=== PATIENT | male | born 1950 | race Caucasian/White ===

== ENCOUNTER 2022-09-15 17:01 | Emergency (ER) | payer OTHER ==
[~2022-09-15] VITALS: Ht 182.9 cm; Wt 81.6 kg
[2022-09-15 17:03] VITALS: BP_SYST 124
--- NOTE | 2022-09-15 17:10 | NUR ---
# 20 gauge angiocath placed to left antecubital. Use of asceptic technique. Opsite placed over site. Blood return noted. Blood for lab drawn from site. Flushed with 10 cc of normal saline. No evidence of infiltration noted. Patient tolerated well.
[2022-09-15] MEDS ORDERED: ONDANSETRON HCL 4 MG/2 ML VIAL IVP ONE (17:15)
--- NOTE | 2022-09-15 17:35 | NUR ---
Correctional Lieutenant bedside collecting blood specimen.
[2022-09-15] MEDS ORDERED: NS 250 ML IV ONE ×2 (17:45→19:00)
[2022-09-15 18:02] LABS: BASOPHILS % (AUTO) 0.5 % (0.0-2.0); EOSINOPHILS # (AUTO) 0.1 K/uL (0.0-0.4); EOSINOPHILS % (AUTO) 0.9 % (0.0-4.0); HEMATOCRIT 34.4 % (36-54); MEAN CORPUSCULAR HEMOGLOBIN 30 pg (27-31); MEAN CORPUSCULAR HGB CONC 32 % (32-36); MEAN CORPUSCULAR VOLUME 93 fL (79.0-98.0); MONOCYTES # (AUTO) 0.7 K/uL (0.0-1.0); MONOCYTES % (AUTO) 9.2 % (1.7-9.3); NEUTROPHILS # (AUTO) 4.8 K/uL (1.8-7.7); NEUTROPHILS % (AUTO) 63.4 % (40.0-70.0); PLATELET COUNT (AUTO) 194 K/uL (130-430); RED BLOOD CELL COUNT(AUTO) 3.71 MIL/uL (4.2-6.2); RED CELL DISTRIBUTION WIDTH 16.7 % (9.0-15.0); WHITE BLOOD COUNT (AUTO) 7.5 K/uL (4.8-10.8)
[2022-09-15 18:09] LABS: ANION GAP 13 (5-15); CALCIUM 9.5 mg/dL (8.4-11.0); CHLORIDE 95 mmol/L (98-107); GLUCOSE 215 mg/dL (70-99); UREA NITROGEN, BLOOD 44 mg/dL (8-21)
[2022-09-15 18:11] LABS: INR 1.2 (0.80-1.20); PROTHROMBIN TIME 12.5 SECS (9.5-12.5)
[2022-09-15] MEDS ORDERED: INSU100V7 SUBCUT (18:27)
[2022-09-15] MEDS ORDERED: ERGO1TAB30 PO (18:27)
[2022-09-15] MEDS ORDERED: APIX5TAB PO (18:27)
[2022-09-15] MEDS ORDERED: FOLI-43 PO (18:27)
[2022-09-15] MEDS ORDERED: FLUT16SP16 NS (18:27)
[2022-09-15] MEDS ORDERED: DORZ10DR10 EACH EYE (18:27)
[2022-09-15] MEDS ORDERED: MIDO5TAB4 PO (18:27)
[2022-09-15] MEDS ORDERED: REN800 PO (18:27)
[2022-09-15] MEDS ORDERED: GABA-529 PO (18:27)
[2022-09-15] MEDS ORDERED: PATI8.4P PO (18:27)
[2022-09-15] MEDS ORDERED: FLUO5DRO2 EACH EYE (18:27)
[2022-09-15] MEDS ORDERED: SEN30 PO (18:27)
[2022-09-15] MEDS ORDERED: AMIO200T61 PO (18:27)
[2022-09-15] MEDS ORDERED: METO-290 PO (18:27)
[2022-09-15] MEDS ORDERED: LIP40 PO (18:27)
[2022-09-15] MEDS ORDERED: POLY17PO4 PO (18:27)
[2022-09-15] MEDS ORDERED: ONDA4FIL5 PO (18:27)
[2022-09-15] MEDS ORDERED: NPH,100I SQ (18:27)
[2022-09-15] MEDS ORDERED: SENN8.6T19 PO (18:27)
[2022-09-15] MEDS ORDERED: ACET1TAB93 PO (18:27)
[2022-09-15 18:28] LABS: ALANINE AMINOTRANSFERASE 26 U/L (12-78); ALBUMIN 3.4 g/dL (3.4-4.8); ASPARTATE AMINOTRANSFERASE 24 U/L (10-37); PHOSPHORUS 3.3 mg/dL (2.7-4.5); TOTAL BILIRUBIN 0.5 mg/dL (0.0-1.0)
--- NOTE | 2022-09-15 18:28 | NUR ---
Medication reconciliation completed with information provided by [facility]. Any prior medication reconciliation on file was reviewed and corrected.
--- NOTE | 2022-09-15 19:19 | NUR ---
Report given to Tylor WASHINGTON
[2022-09-16 00:54] VITALS: BP_SYST 187
--- NOTE | 2022-09-16 00:56 | NUR ---
Patient to be transferred to [facility]. Is being transferred due to higher level of care. Receiving facility has accepting physician and available space. ER physician has signed transfer form. Patient or responsible constitution party has agreed to transfer and signed form. Patient belongings inventoried and will be sent with patient. Copy of nursing notes, lab reports, EKG, Physicians Orders and X-rays to be sent with patient. Report called to PADMINI BAUMAN at receiving facility. Receiving physician is DR. CARPIO. [facility] ambulance service has been called for transfer. PT LEFT VIA BERYL NOVOA IN STABLE CONDITION.
== END 2022-09-16 00:54 | disposition short-term general hospital (02) ==
LOC: SED 17:01
DX: J96.01 Acute respiratory failure with hypoxia (principal); R42 Dizziness and giddiness; D64.9 Anemia, unspecified; I95.9 Hypotension, unspecified; R07.89 Other chest pain; R11.2 Nausea with vomiting, unspecified; E11.9 Type 2 diabetes mellitus without complications; K21.9 Gastro-esophageal reflux disease without esophagitis; Z88.8 Allergy status to other drugs, medicaments and biological substances; Z79.4 Long term (current) use of insulin; Z79.899 Other long term (current) drug therapy; Z20.822 Contact with and (suspected) exposure to COVID-19
CPT/HCPCS: 99285; 96374; 70450; 71045; 87426; 80053; 83880; 83735; 84100; 85025; 85610; 85730; 87040; 84484; 36415; 93005; 76376; 83605; J2405